=== PATIENT | female | born 2000 | race Caucasian/White ===

== ENCOUNTER 2019-08-01 09:01 | Day surgery (SDC) | payer OTHER ==
[~2019-08-01 09:01] MED LIST: DEXAMETHASONE SOD PHOS INJ 10 MG/1 ML VIAL ONE; DEXAMETHASONE SOD PHOSPHATE INJ 4 MG/1 ML VIAL ONE; FENTANYL CITRATE INJ/PF 100 MCG/2 ML AMPUL ONE; GLYCOPYRROLATE INJ 0.4 MG/2 ML VIAL ONE; LIDOCAINE 2% INJ-PF (100 MG/5 ML) SYRINGE ONE; MIDAZOLAM 2 MG/2 ML INJ ONE; ONDANSETRON HCL INJ/PF 4 MG/2 ML SDV ONE; PROPOFOL INJ 200 MG/20 ML VIAL IV ONE; SUCCINYLCHOLINE CHLORIDE INJ 200 MG/10 ML VIAL ONE
[2019-08-01] MEDS ORDERED: BUPIVACAINE HCL 0.5%/EPI 1:200000 INJ 1.8 ML CARTRIDGE ONE (10:59)
[2019-08-01] MEDS ORDERED: FAMOTIDINE INJ/PF 20 MG/2 ML SDV IV ONE (11:14)
[2019-08-01] MEDS ORDERED: DEXMEDETOMIDINE INJ 80 MCG/20 ML VIAL IV ONE (11:29)
--- NOTE | 2019-08-02 21:27 | Operative Report ---
[facility] Oper[facility] Report: DATE OF OPERATION: August 01, 2019 PREOPERATIVE DIAGNOSIS: 1. Adenotonsillar hypertrophy 2. Upper airway resistance syndrome/UARS 3. Acute recurrent tonsillitis 4. Chronic tonsillitis 5. Tonsil stones POSTOPERATIVE DIAGNOSIS: 1. Adenotonsillar hypertrophy 2. Upper airway resistance syndrome/UARS 3. Acute recurrent tonsillitis 4. Chronic tonsillitis 5. Tonsil stones PROCEDURE: 1. Bilateral tonsillectomy patient age greater than age 12 2. Adenoidectomy/adenoid surgery Primary Surgeon of Record: Dr. Jr Bernstein MANAGER PROCESS IMPROVEMENT: None Anesthesia Staff: ALEJANDRA Mott ANESTHESIA: General Endotracheal Tube Anesthesia DRAINS: None SPONGE COUNT: Verified Needle Count: N/A SPECIMEN/MATERIALS FORWARD TO THE LAB: 1. Left and Right Tonsillar Tissue ESTIMATED BLOOD LOSS: 10 mL IV FLUIDS: 900 mL COMPLICATIONS: None Findings: 1. Tonsils were 4+ " kissing tonsils", were cryptic in appearance and with tonsillar debris bilateral. 2. Adenoid hypertrophy was 2-3+ in size with Lauren compression. 3. The soft palatal tissues were redundant in nature and the uvula was thickened and elongated. INDICATIONS: This is a 18-year-old white female patient who was seen and evaluated in the [place] [facility] office. The patient had been referred for and the patient complained of a history of acute recurrent tonsillitis episodes occurring each year requiring antibiotics over the years and history of chronic tonsillitis with tonsil debris over the years as well. The patient is also with history of upper airway resistance syndrome symptoms over the years with no witnessed apneas. The patient was then able to undergo tonsil and adenoid surgery earlier in life. After extensive discussion with the patient with the recommendation and plan was to proceed with a tonsillectomy, and adenoidectomy/adenoid surgery. The procedure and all of the risks and complications were all discussed in detail with the patient. She voiced an understanding of the described surgical plan, were in agreement, and consent was obtained. DESCRIPTION OF OPERATIVE PROCEDURE: The patient was taken to the main operating room and was placed on the operating room table in the supine position. Appropriate monitors were placed. Using mask and IV access general anesthesia was induced. The patient was next transorally intubated without difficulty. The table was then rotated 90 and the patient was positioned and prepped for tonsil and adenoid surgery. The lips, teeth, tongue, and gums were inspected and noted to be without defect. The patient had a mouth gag inserted. It was opened and the patient was placed into suspension. There was a soft catheter passed through the nose that was used to suspend the soft palate. Local anesthetic with epinephrine was injected about the tonsillar areas to establish a local block. Findings are as noted above. At this point the adenoid microdebrider system at a setting of 1500 RPM was used to debulk the adenoid tissue. Next, with use of adenoid packs and suction electrocautery adequate hemostasis was achieved. The plasma J-hook device was used to dissect and remove the tonsils from the tonsillar fossae without difficulty. This was also used to provide adequate hemostasis. Normal saline irrigation was performed and was suctioned. Adequate hemostasis was noted. The soft catheter was released and removed from the patients nose. The patient was next released from suspension and the mouth gag was closed. It was opened again and there was again no bleeding noted. It was then removed from the patient's mouth without difficulty. There was no damage to the lips, teeth, tongue, or gums noted. The patient was then returned to the anesthesia staff and was allowed to emerge from general anesthesia. The patient was extubated in the operating room and was transported to the post anesthesia recovery unit in stable condition. There were no complications.
== END 2019-08-01 13:45 | disposition home or self-care (01) ==
LOC: SC 09:01
PROVIDERS: ATTEND Otolaryngology
DX: J35.01 Chronic tonsillitis (principal); J03.91 Acute recurrent tonsillitis, unspecified; J35.8 Other chronic diseases of tonsils and adenoids; J34.89 Other specified disorders of nose and nasal sinuses; J35.3 Hypertrophy of tonsils with hypertrophy of adenoids; G47.8 Other sleep disorders; L40.9 Psoriasis, unspecified
CPT/HCPCS: 36415; 86003 ×24; 82785; 88304 ×2; 42821; J2250; J3490 ×2; J3010; J2001; J0330; J2405; J2704; S0028; J1100